=== PATIENT | female | born 1990 | race African-American/Black ===

== ENCOUNTER 2021-04-08 04:36 | Emergency (ER) | payer MEDICAID ==
[~2021-04-08] VITALS: Ht 180.3 cm; Wt 97.5 kg
[~2021-04-08 04:36] MED LIST: LURA40TA PO; QUET300T2 PO
--- NOTE | 2021-04-08 04:36 | NUR ---
Patient to ER bed H1.
--- NOTE | 2021-04-08 04:40 | NUR ---
Patient BIB by family from home. C/O left finger pain x 1 week. Patient reported, ring stucked left index finger for a week, A/O,X4 , left index finger swelling, pain rate 7/10.
--- NOTE | 2021-04-08 04:40 | NUR ---
ER Dr. Baumann at bedside examining patient.
[2021-04-08 04:43] VITALS: BP_SYST 145
[2021-04-08] MEDS ORDERED: LIDOCAINE/EPI 1% 1:100000 20 ML VIAL INJ ONE (05:00)
[2021-04-08] MEDS ORDERED: LIDOCAINE 1%, 20 ML MDV 20 ML ONE (05:12)
[2021-04-08] MEDS ORDERED: LIDOCAINE 1% 10 MG/ML, 20 ML MDV INJ ONE (05:15)
[2021-04-08] MEDS ORDERED: CEPH500C2 PO (05:29)
[2021-04-08] MEDS ORDERED: NAPR-1172 PO (05:29)
[2021-04-08] MEDS ORDERED: BACITRACIN 1 GM OINT TP ONE (05:30)
[2021-04-08 05:42] VITALS: BP_SYST 142
--- NOTE | 2021-04-08 05:42 | NUR ---
Patient given written and verbal discharge instructions and verbalizes understanding. ER MD discussed with patient treatment provided. Patient in stable condition. ID arm band removed. No Rx given. Patient educated on pain management and to follow up with PMD. Pain Scale 0/10. Opportunity for questions provided and answered.
== END 2021-04-08 05:42 | disposition home or self-care (01) ==
LOC: SED 04:36
DX: S60.441A External constriction of left index finger, initial encounter (principal); L03.012 Cellulitis of left finger; Z79.899 Other long term (current) drug therapy; W49.04XA Ring or other jewelry causing external constriction, initial encounter; Y93.89 Activity, other specified; Y92.89 Other specified places as the place of occurrence of the external cause; Y99.8 Other external cause status
CPT/HCPCS: 99284; J2001